=== PATIENT | female | born 1960 | race African-American/Black ===

== ENCOUNTER 2021-03-05 11:58 | Outpatient (CLI) | payer OTHER ==
--- NOTE | 2021-03-05 16:50 | Mammography Report ---
DIGITAL SCREENING MAMMOGRAM WITH CAD, 03/05/2021 CLINICAL INFORMATION / INDICATION: Routine screening mammography. SCREENING MAMMOGRAM TECHNIQUE: Digital bilateral 2D mammography was obtained in the craniocaudal and mediolateral obliqu e projections. This examination was interpreted with the benefit of Computer-Aided Detection analysis . COMPARISON: 11/21/2012 FINDINGS: Breast Density: The breasts are heterogeneously dense, which may obscure small masses. No dominant mass, suspicious calcifications, or architectural distortion in either breast. IMPRESSION: No mammographic evidence of malignancy. Follow up recommendation: Routine yearly BI-RADS Category 1: Negative. A "normal" or negative report should not discourage follow up or biopsy of a clinically significant f inding. A written summary of these findings will be mailed to the patient. The patient will be entered into a mammography reporting system which will generate a reminder letter for the patient's next appointmen t at the appropriate interval. The [employer] recommends yearly mammograms starting at age 40 and continuing as l vera as a woman is in good health. Breast MRI is recommended for women with an approximate 20-25% or greater lifetime risk of breast cancer, including women with a strong family history of breast or ova asif cancer or who have been treated for Hodgkin's disease. Signer Name: Santiago Hobbs MD Signed: 03/05/2021 4:46 PM Workstation Name: [id number]
== END 2021-03-05 11:59 | disposition home or self-care (01) ==
LOC: MAMMO 11:58
PROVIDERS: ATTEND Internal Medicine
DX: Z12.31 Encounter for screening mammogram for malignant neoplasm of breast (principal)
CPT/HCPCS: 77067